=== PATIENT | male | born 1960 | race Caucasian/White ===

== ENCOUNTER 2021-08-09 12:36 | Outpatient (CLI) | payer OTHER, SELFPAY ==
--- NOTE | 2021-08-10 15:40 | WPDPFTINT ---
PFT Procedure Performed PFT Procedure Performed Spirometry with Pre/Post Bronchodilator Plethysmography (Lung Vol) Diffusing Cap (DLCO) Flow Vol Loop PFT Interpretation Lung volumes were measured with the body plethysmography method. Lung volumes are unremarkable. Spirometry shows normal expiratory flow rates and a normal FEV1 to FVC ratio 75%. Following administration of a bronchodilator, there was no significant increase in expiratory flow rates. Lung diffusion capacity is within the normal range. The flow volume loop is unremarkable. Impression: Spirometry, lung volumes, and lung diffusion capacity all within normal range.
== END 2021-08-09 12:37 | disposition home or self-care (01) ==
PROVIDERS: PCP Family Medicine; Visit Provider Allergy & Immunology
DX: R05.9 Cough, unspecified (principal)
CPT/HCPCS: 94060; 94726; 94729

== ENCOUNTER → 2021-09-06 02:46 | Outpatient (CLI) | payer OTHER, SELFPAY ==
[2021-09-06 20:41] LABS: SARS-CoV-2 RNA PCR Negative
== END ==
PROVIDERS: PCP Family Medicine; Visit Provider Family Medicine
DX: J06.9 Acute upper respiratory infection, unspecified (principal); Z20.822 Contact with and (suspected) exposure to COVID-19
CPT/HCPCS: C9803; U0003; U0005

== ENCOUNTER → 2021-12-17 14:31 | Outpatient (CLI) | payer OTHER, SELFPAY ==
--- NOTE | ~2021-12-17 | XR_ITS ---
XR hand RT min 3V DATE: 12/17/2021 14:47 INDICATION: Multiple joint pain TECHNIQUE: 4 views COMPARISON: None FINDINGS: Old healed fracture deformities of the fourth and fifth metacarpal shafts. There is prominent osteoarthritic change at the second and third and to a lesser extent first metacar pophalangeal joints. No recent fracture or dislocation, periosteal reaction or bone destruction. IMPRESSION: Polyarticular osteoarthritis Old healed fracture deformities of fourth and fifth metacarpal shafts Reviewed, dictated and finalized at location A.
== END ==
PROVIDERS: PCP Family Medicine; Visit Provider Family Medicine
DX: M25.541 Pain in joints of right hand (principal); M19.011 Primary osteoarthritis, right shoulder; Z87.81 Personal history of (healed) traumatic fracture
CPT/HCPCS: 73130

== ENCOUNTER 2022-05-03 01:43 | Day surgery (SDC) | payer OTHER, SELFPAY ==
[2022-04-23 10:56] VITALS: BMI 29.8
[2022-05-03 09:31] VITALS: BP 144/78; PULSE 56; RESP 16; TEMP 36.6; O2SAT 99
[2022-05-03] MEDS: LACTATED RINGERS 1,000 ML 150 ML IV CONT (09:42)
--- NOTE | 2022-05-03 09:54 | WPDANESEPPF ---
Anes - Initial Pre Proc Eval Procedure: Operation Date: 05/03/22 10:15 Proposed Procedures p Screening Colonoscopy - Brad Cain MD Date/Time: 05/03/22 09:54 Surgeon: Brad Cain MD Pre Op Diagnosis: neoplasm screening Patient Data Age: 61 Gender: M Height: 1.73 m Weight: 91.2 kg Last Vital Signs Temp 97.8 F 05/03/22 09:31 Pulse 56 L 05/03/22 09:31 Resp 16 05/03/22 09:31 BP 144/78 H 05/03/22 09:31 Pulse Ox 99 05/03/22 09:31 O2 Del Method Room Air 05/03/22 09:31 Allergies Allergy/AdvReac Type Severity Reaction Status Date / Time No Known Allergies Allergy Verified 05/03/22 09:29 Home Medications Medication Instructions Recorded Confirmed Type sodium,potassium,mag sulfates 17.5 See Rx Instructions PO .COMPLEX 03/27/22 05/03/22 Rx gram-3.13 gram-1.6 gram oral soln #354 mL (Suprep Bowel Prep Kit) candesartan 16 1 tablet PO DAILY 04/23/22 05/03/22 History mg-hydrochlorothiazide 12.5 mg tablet omeprazole 20 mg capsule,delayed 20 mg PO DAILY 04/23/22 05/03/22 History release indomethacin 25 mg capsule 25 mg PO BID 04/30/22 05/03/22 History prednisolone acetate 1 % eye 1 drp ophthalmic (eye) DAILY 04/30/22 05/03/22 History drops,suspension sildenafil 100 mg tablet 100 mg PO DAILY PRN Erectile 04/30/22 05/03/22 History Dysfunction Patient hx anesthesia problems: none Family hx anesthesia problems: none Results Review: All pre-operative results and documents have been reviewed as part of the pre-operative evaluation. [facility] Family History Family History (Updated 03/04/18 @ 16:04 by DOCTOR UNKNOWN) Sibling Malignant neoplasm of prostate Social History Social History Smoking status: Never smoker Alcohol intake: current Alcohol use details: socially Substance use: never Substance use type: does not use Living arrangements: with family Spiritual care concerns: No Anes - Eval Final PreProcedure Day of Procedure 05/03/22 09:54 Patient weight: obese Heart: regular rate and rhythm Lungs: clear to auscultation Airway: Mallampati scale class II Neurological: alert and oriented Last oral intake: >/= 8 hours ASA classification: II Emergent: no Anesthetic plan: proceed Anesthesia type and monitoring: general GIVS and standard monitoring Results Review: All pre-operative results and documents have been reviewed as part of the pre-operative evaluation. Informed Consent: The patient's anesthetic plan and its attendant risks and benefits were discussed with the patient/family/POA. Questions were solicited and answers provided to the satisfaction of the patient/family/POA.
--- NOTE | 2022-05-03 10:09 | P.HP_ITS ---
H&P: HPI History of Present Illness Date/Time: 05/03/22 10:09 Chief Complaint: Neoplasia screening. Narrative: This is a 61-year-old white male patient presents for screening colonoscopy. Patient's current weight appetite and bowel movements are normal. Patient denies abdominal pain. He has had no bleeding. Family history is significant his grandparent had colon cancer. Patient's last colonoscopy 08/03/2000 years ago was unremarkable. Review of Systems Review of Systems: Review of systems noncontributory. [facility] Family History Family History (Updated 03/04/18 @ 16:04 by DOCTOR UNKNOWN) Sibling Malignant neoplasm of prostate Social History Social History Smoking status: Never smoker Alcohol intake: current Alcohol use details: socially Substance use: never Substance use type: does not use Living arrangements: with family Spiritual care concerns: No Meds Home Medications and Allergies Home Medications Medication Instructions Recorded Confirmed Type sodium,potassium,mag sulfates 17.5 See Rx Instructions PO .COMPLEX 03/27/22 05/03/22 Rx gram-3.13 gram-1.6 gram oral soln #354 mL (Suprep Bowel Prep Kit) candesartan 16 1 tablet PO DAILY 04/23/22 05/03/22 History mg-hydrochlorothiazide 12.5 mg tablet omeprazole 20 mg capsule,delayed 20 mg PO DAILY 04/23/22 05/03/22 History release indomethacin 25 mg capsule 25 mg PO BID 04/30/22 05/03/22 History prednisolone acetate 1 % eye 1 drp ophthalmic (eye) DAILY 04/30/22 05/03/22 History drops,suspension sildenafil 100 mg tablet 100 mg PO DAILY PRN Erectile 04/30/22 05/03/22 History Dysfunction Allergies Allergy/AdvReac Type Severity Reaction Status Date / Time No Known Allergies Allergy Verified 05/03/22 09:29 Vital Signs Vital Signs - 24 hr 05/03/22 09:31 Temperature 97.8 F Pulse Rate 56 L Respiratory Rate 16 Blood Pressure 144/78 H Pulse Oximetry 99 Oxygen Delivery Room Air Exam Narrative: Physical exam reveals patient to be alert. Vital signs stable. HEENT exam is unremarkable. Patient is anicteric. Lungs are clear to auscultation and percussion. Heart is without murmur or extra sounds. Abdominal exam bowel sounds present soft nontender with no organomegaly. Digit al external rectal exam is normal. Assessment and Plan Assessment and plan (1) Encounter for screening colonoscopy: Code(s): Z12.11 - Encounter for screening for malignant neoplasm of colon Status: Acute Assessment and Plan: Patient presents today for screening colonoscopy. He appears to be at average risk for colon polyps. Further recommendations will be given after endoscopy.
[2022-05-03 10:38] VITALS: BP 115/66; PULSE 55; RESP 17; O2SAT 98
[2022-05-03 10:48] VITALS: BP 118/76; PULSE 51; RESP 17; O2SAT 96
[2022-05-03 10:58] VITALS: BP 124/75; PULSE 52; RESP 17; O2SAT 98
== END 2022-05-03 11:12 | disposition home or self-care (01) ==
PROVIDERS: PCP Family Medicine; Visit Provider Internal Medicine Gastroenterology
PROC: 0DJD8ZZ Inspection of Lower Intestinal Tract, Via Natural or Artificial Opening Endoscopic (ICD-10-PCS; CPT 45378; principal; 2022-05-03 10:15)
DX: Z12.11 Encounter for screening for malignant neoplasm of colon (principal); Z80.0 Family history of malignant neoplasm of digestive organs; K57.30 Diverticulosis of large intestine without perforation or abscess without bleeding; K64.8 Other hemorrhoids
CPT/HCPCS: 45378; J2704; J7120

== ENCOUNTER 2023-12-23 10:18 | Outpatient (CLI) | payer OTHER, SELFPAY ==
--- NOTE | ~2023-12-23 | XR_ITS ---
Clinical Indication: Cough PA and lateral views of the chest: Comparison: 02/28/2010 Findings: The lungs are clear, without evidence of focal consolidation or pleural effusion. Cardiome diastinal silhouette is within normal limits. Bones and soft tissues are unremarkable. Impression: Normal chest. Reviewed, dictated and finalized at [facility]. Impression: Normal chest.
== END 2023-12-23 10:19 ==
PROVIDERS: PCP Family Medicine; Visit Provider Family Medicine
DX: R05.9 Cough, unspecified (principal)
CPT/HCPCS: 71046

== ENCOUNTER 2024-01-29 13:56 | Outpatient (CLI) | payer OTHER, SELFPAY ==
--- NOTE | ~2024-01-29 | XR_ITS ---
XR hip LT min 2V Ordering provider: Matt Pineda MD History: . M25.552 - Pain in left hip . Comparison: None. FINDINGS: BONES: No acute fracture or dislocation. HIP JOINT SPACES: Normal. SACROILIAC JOINT SPACES/LUMBAR SPINE: The sacroiliac joint spaces are normal. PUBIC SYMPHYSIS: Normal. SOFT TISSUES: Normal. IMPRESSION: No acute osseous abnormality left hip. Reviewed, dictated and finalized at location A.
== END 2024-01-29 13:57 ==
LOC: MICIMG 13:56
PROVIDERS: PCP Family Medicine; Visit Provider Family Medicine
DX: M25.552 Pain in left hip (principal)
CPT/HCPCS: 73502

== ENCOUNTER 2025-01-25 13:50 | Outpatient (CLI) | payer OTHER, SELFPAY ==
--- NOTE | ~2025-01-25 | XR_ITS ---
AP view of the pelvis and AP and lateral views of the left hip Clinical history: Pain Findings: No acute fracture or dislocation is seen. Osseous alignment is anatomic. There is minimal d egenerative change of the left hip joint. Soft tissues are unremarkable. Impression: Minimal degenerative change of the left hip joint. Reviewed, dictated and finalized at location . Impression: Minimal degenerative change of the left hip joint.
== END 2025-01-25 13:51 | disposition home or self-care (01) ==
LOC: MICIMG 13:51
PROVIDERS: PCP Family Medicine; Visit Provider Family Medicine
DX: M25.552 Pain in left hip (principal)
CPT/HCPCS: 73502

== ENCOUNTER 2025-03-28 00:34 | Day surgery (SDC) | payer OTHER, SELFPAY ==
[2025-03-10 08:32] VITALS: BMI 31.7
--- OUTSIDE RECORDS SUMMARY | 2025-03-28 00:36 | XMS_ITS | Clinical Summary ---
Author Organization [facility] Address [address] [place] [id number] Care Team Providers Care Career Resource Specialist Name Role Phone Matt Pineda MD Primary Care Provider [phone] Immunizations Immunization Administration Dates Next Due PFIZER COVID-19 (ORIGINAL FO RMULATION, PURPLE CAP) mRNA, LNP-S, PF, 30 MCG/0.3 ML DOSE 11/23/2020,11/03/2020 Social History Tobacco Use Types Packs/Day Years Used Date Smoking Tobacco: Never Assessed Sex and Gender Information Value Date Recorded Sex Assigned at Not on file Legal Sex Male 5:15 PM CDT Gender Identity Not on file Sexual Orientation Not on file Plan of Treatment Health Maintenance Due Date Last Done Comments Colorectal Cancer Screening Colonoscopy (10 Years) 1961 Annual Physical 1964 Hepatitis C 1979 DTaP, Tdap and Td Vaccines ( 1 - Tdap) 1980 Pneumococcal Vaccine: 50+ Years (1 of 1 - PCV) 2011 Zoster Vaccines (1 of 2) 2011 COVID-19 Vaccine (3 - 2023-2 5 season) 2024 11/23/2020, 11/03/2020 RSV Immunization or 60+ Years (1 - 1-dose 75+ series) 2036 Meningococcal B Vaccine Aged Out No l onger eligible based on patient's age to complete this topic Meningococcal Vaccine Aged Out No wilmer john paul eligible based on patient's age to complete this topic RSV Immunizations Under 20 Months Aged Out No longer eligible b ased on patient's age to complete this topic Care Teams Career Resource Specialist Relationship Specialty Start Date End Date Matt Pineda MD [address] [place] [address] PCP - General 10/19/13
--- OUTSIDE RECORDS SUMMARY | 2025-03-28 00:36 | XMS_ITS | Continuity of Care Document ---
Author Organization [facility] Address [address] [place] [address] Phone Care Team Providers Care Polymerization Oven Tender Name Role Phone Alex PT, ASHELYT, Kelvin Unavailable Loreto vailable Procedures Procedure Date Therapeutic Activities Neuromuscular Re-Ed Therapeutic Exercise Manual Therapy Therapeutic Activities Therapeutic Exercise Neuromuscular Re-Ed Manual Therapy Therapeutic Activities Neuromuscular Re-Ed Therapeutic Exercise Manual Therapy Therapeutic Activities Neuromuscular Re-Ed Therapeutic Exercise Manual Therapy Therapeutic Activities Neuromuscular Re-Ed Therapeutic Exercise Manual Therapy Therapeutic Activities Neuromuscular Re-Ed Therapeutic Exercise Manual Therapy Therapeutic Activities Neuromuscular Re-Ed Therapeutic Exercise Manual Therapy Doc neg elder mal no plan PT Evaluation Moderate Complexity Therapeutic Activities Manual Therapy Therapeutic Exercise Neuromuscular Re-Ed Hot or Cold Pack Advance Directives Directive Yes / No Effective Date File Name No Information Encounters Encounter Description Practice Location Reason(s) For Visit Diagnoses Date Provider Providers Copied on Encounter [facility], [place], [place], [id number], tel:[phone] [facility] No Information Allyson Warren. [address] [place] [address], [address], [place], [place], [facility], . tel:[phone] Referring Provider: Omer Moon, [address], [place], [address]. tel:[phone] [facility] [address], [place], [place], [id number], [place] tel:[phone] [facility] No Information Allyson Warren. [address] [place] [address], [address], [place], [place], [facility], . tel:[phone] Referring Provider: Omer Moon, [address], [place], [address]. tel:[phone] [facility] [address], [place], [place], [id number], [place] tel:[phone] [facility] No Information Bernarda Burrell. . Referring Provider: Omer Moon, [address], [place], [address]. tel:[phone] [facility] [address], [place], [place], [id number], [place] tel:[phone] [facility] No Information [facility] [place]. . Referring Provider: Omer Moon, [address] [place], [address]. tel:[phone] [facility], [place], [place], [id number], [place] tel:[phone] [facility] No Information Allyson Warren. [address] [place] [address], [address], [place], [place], [facility], [place]. tel:[phone] Referring Provider: Omer Moon, [address], [place], [address]. tel:[phone], [id number], tel:[phone] [place] No Information Allyson Warren. [address] [place] [address], [address] [address], . tel:[phone] Referring Provider: Omer Moon, [address], [place], [address]. tel:[phone], [id number], tel:[phone] [facility] No Information Bernarda Savage . Referring Provider: Viri Garcia[address] [place], [address]. tel:[phone], [id number], tel:[phone] [facility] No Information Allyson Warren. [address] [place] [address], [address], [place], [address] [place] [address]. tel:[phone] Referring Provider: Omer Moon [address] [place], [address]. tel:[phone] Family History Family Member Type Diagnosis Age At Onset No Information Payers Payer name Insurance type Covered republican ID Daina diallo(s) [facility] Shared Services CI [id number] Social History Type Description Quantity Date Captured Comments Sex Male Smoking Status No Information Chief Complaint And Reason For Visit No Information Reason For Referral Reason For Referral No Information History Of Present Illness Encounter Date Complaint History Of Prese nt Illness No Information Functional Status Date Functional Assessmen t No Information Instructions Date Instruction Additional Infor mation No Information Assessments Type Assessment Date No Information Patient Care Teams Name Effective Dates (start - stop) Status Members No Information
--- OUTSIDE RECORDS SUMMARY | 2025-03-28 00:37 | XMS_ITS | Clinical Summary ---
Author Organization [facility] Address [address] [place] [address] Phone Care Team Providers Care Manager Diesel Name Role Phone Matt Pnieda MD Primary Care Provider [phone] Allergies No known active allergies Medications omeprazole (PriLOSEC) 20 mg capsule Take 1 capsule (20 mg total) by mouth nightly 8 Active VIAGRA 100 mg tablet Take 1 tablet (100 mg total) by mouth as needed 8 Active multivitamin capsule Take 1 capsule by mouth every morning Active krill oil 500 mg capsule Take 1 capsule by mouth every morning Active candesartan-hyd rochlorothiazid (ATACAND HCT) 16-12.5 mg per tablet 2 Active indomethacin (INDOCIN) 25 mg capsule TAKE 1 CAPSULE THREE TIMES A DAY NEEDED 270 capsule 3 4 Active amLODIPine (NORVASC) 10 mg tablet 4 Active azelastine (ASTELIN) 137 mcg (0.1 %) nasal spray USE 1 SPRAY IN EACH NOSTRIL EVERY 12 HOURS 4 Active Asmanex HFA 200 mcg/actuation inhaler [address] (PROTONIX) 40 mg EC tablet TAKE 1 TABLET BY MOUTH EVERY MORNING FOR 6 WEEKS 4 Active prednisoLONE acetate (PRED FORTE) 1 % ophthalmic suspension Administer 1 drop into both eyes daily 15 mL 11 5 Active Active Problems Problem Noted Date Diagnosed Date Deviated nasal septum 09/13/2020 Hypertrophy of both inferior nasal turbinates Recurrent sinusitis 09/13/2020 PVD (posterior vitreous detachment), left 2019 Assessment & Plan (08/04/2020 1:56 PM BOTTLE LABELER): Acute X 1 day -retina flat and attached both eyes (OU) -pt ed s/s retinal detachment (RD); RTC sissy if noted -otherwise rtc as scheduled 09/29/20 s/p DMEK/CE OD (06/19/20), s/p DMEK/CE OS () 03/14/2020 Assessment & Plan (09/09/2023 2:06 PM BOTTLE LABELER): Clear grafts OU Cont FML OU qd RTC [address] Virk, [facility] Assessment & Plan (02/19/2022 11:22 AM CDT): Clear grafts OU FML OU qd RTC 1 yr Assessment & Plan (02/20/2021 1:41 PM CDT): DMEK attached OU, VA and IOP excellent cont FML OU qd RTC 12mos Assessment & Plan (07/28/2020 11:11 AM BOTTLE LABELER): DMEK attached OU FML OU qd MRx w/ Demetrulius RTC me 6-8mos Assessment & Plan (06/27/2020 8:54 AM BOTTLE LABELER): DMEK attached except small portion of inferior border with associated MCE, centered, compact, Clear centrally, S-stamp visible. No keratitic precipitate (KP). Status post (s/p) DMEK POW1 Plan : Suture removed MRx @ 3 months Dilate next Stop Oflox today Predforte taper 6x/day x 2 weeks, then QID, TID, BID, once daily x 1 month OD. Then change to FML daily. Continue mercedes until FBS resolves Continue PF BID OS x 2 more weeks, then decrease to qday and stay at that frequency. D/w pt to RTC SISSY for worsening vision, flashes, floaters, pain. 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 Early sub epi scar without change. Continue: mercedes gtt qam OU mercedes brooks qhs OU Discussed that Rho kinase studies likely not starting here soon, but could go to [place] for DSO if interested. Discussed risks of pandemic WRT [place] vs [place]. Would recommend instead that he meet with Dr. Thomas regarding possible DMEK/CE/IOL OS for this reason as well as quicker recovery. RTC with Dr. Thomas [facility]( discussed w/ Dr. Thomas by phone- he will call patient), will also schedule follow-up here in 6 months. Assessment & Plan (10/14/2019 1:34 PM BOTTLE LABELER): Beginning to have difficulties with ADLs/driving Early sub epi scar without change Discussed S may membrane removal/Rho kinase and upcoming study-will call back in the next 2-3 months for consideration. 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 Hypertension 06/29/2013 Gastroesophageal reflux disease 02/26/2011 Common migraine with intractable migraine 2010 Obstructive sleep apnea syndrome 02/26/2011 Resolved Problems Problem Noted Date Diagnosed Date Resolved Date Combined forms of age-relate d cataract of right eye 04/13/2020 10/04/2020 Overview (04/13/2020): Added automatically from request for surgery [id number] Combined forms of age-relate d cataract of left eye 02/21/2020 03/14/2020 Overview (02/21/2020): Added automatically from request for surgery [id number] Combined forms of age-related cataract 04/25/2015 10/04/2020 Assessment & Plan (04/09/2019 11:52 AM CDT): adl being met Assessment & Plan (02/27/2018 10:12 AM CDT): BAT 20/40 right eye (OD) and 20/80 OS Encounters Date Type Department Care Team Description 03/24/2025 Documentation [facility] Medicine [address] [place] [phone] Kathy Hyatt MA 03/23/2025 Telephone [facility] [address] [place] [phone] Sharan Strong DO hip surgery 03/02/2025 8:33 AM CDT - 03/02/2025 11:59 PM CDT Hospital Encounter [facility] [address] [place] [address] Left hip pain; Primary osteoarthritis of left hip Discharge Disposition: Discharge to home or self care 03/02/2025 Orders Only [facility] [address] [place] [phone] Sharan Strong DO 03/02/2025 Orders Only [facility] [address] [place] [phone] Sharan Strong DO Primary osteoarthritis of left hip (Primary Dx) 02/24/2025 11:00 AM CDT Office Visit [facility] [address] [place] [phone] Sharan Strong DO Primary osteoarthritis of left hip (Primary Dx); Left hip pain 01/25/2025 10:55 AM CDT - 01/25/2025 11:59 PM CDT Hospital Encounter [facility] [address] [place] [address] Discharge Disposition: Discharge to home or self care from Last 3 Months Surgical History Surgery Date Site/Laterality Comments ACHILLES TENDON REPAIR 08/25/2014 - 08/24/2015 Left FRACTURE SURGERY THUMB COLONOSCOPY EYE SURGERY Bilateral DMEK CATARACT EXTRACTION Bilateral FL FLUORO GUIDED INJECTION HIP LEFT 03/02/2025 Left Medical History Medical History Date Comments Fuchs' corneal dystrophy Sleep apnea GERD (gastroesophageal reflux disease) Hypertension Family History Medical History Relation Name Comments Cataracts Father Cataracts Mother Cancer Other 1 Cancer - (Added by TW Conv) Migraines Other 2 Migraine Headac he - mother and brother (Added by TW Conv) Hypertension Other 3 Hypertension - (Added by TW Conv) Coronary artery disease Other 4 Germain nary Artery Disease - (Added by Conv) Fuchs' dystrophy Neg Hx Glaucoma Neg Hx Retinal detachment Neg Hx Relation Name Status Comments Father Mother Other 1 Other 2 Other 3 Other 4 Social History Tobacco Use Types Packs/Day Years Used Date Smoking Tobacco: Never Smokeless Tobacco: Never Tobacco Cessation:Counseling Given: Not Answered Alcohol Use Standard Drinks/Week Comments Yes 4 (1 standard drink = 0.6 oz pur e alcohol) Sex and Gender Information Value Date Recorded Sex Assigned at Not on file Legal Sex Male 9:23 AM BOTTLE LABELER Gender Identity Not on file Sexual Orientation Not on file Obstetrics History Last Filed Vital Signs Vital Sign Reading Time Taken Comments Blood Pressure 154/80 02/25/2024 8:33 AM CDT Pulse 68 02/25/2024 8:33 AM CDT Temperature 37.2 C (99 F) 02/25/2024 8:33 AM CDT Respiratory Rate 24 06/19/2020 4:25 PM CDT Oxygen Saturation 98% 02/25/2024 8:33 AM CDT Inhaled Oxygen Concentration - - Weight 100.7 kg (222 lb) 02/25/2024 8:33 AM CDT Height 175.3 cm (5' 9) 02/25/2024 8:33 AM CDT Body Mass Index 32.78 02/25/2024 8:33 AM CDT Plan of Treatment Health Maintenance Due Date Last Done Comments Colon Cancer Screening-Colonoscopy 1961 Depression Screening 1961 Hepatitis C Screening 1961 Prostate Cancer Screening-PSA 1961 DTaP/Tdap/Td Vaccine (1 - Tdap) 1972 Hepatitis B Screening 1979 Regular Well Visit/Exam 18-64 1979 Zoster Vaccine (1 of 2) 2011 Covid-19 Vaccine (3 - 2023-2 5 season) 2024 11/23/2020, 11/03/2020 Influenza Vaccine (#1) 2025 , 07/15/2014 Pneumococcal vaccine <65 Aged Out No longer eligible based on patient's age to complete this topic Medical Devices Implanted Type Area Barrel Marker Device Identifier Shelf Expiration Date Model / Serial / Lot [employer] [id number] 16.5d Tecnis Protec 6mm 13mm 1 Piece Anterior Aspheric Square Edge Uv - [id number] - [id number] Implanted:Qty : 1 on 03/13/2020 by Moses Thomas MD at [facility] Lens Left: Anterior Chamber [employer] 11/15/2023 [id number] / [id number] / 0 Cornea Implanted:Qty : 1 on 03/13/2020 by Moses Thomas MD at [facility] Other - see comments Left: Cornea [employer] 03/22/2020 [id number] / [id number] Description:135004 $300.00 470775 $1000.00 328630 $3300.00 TOTAL $4600.00 Left Cornea Posterior Layer Implanted:Qty : 1 on 06/19/2020 by Moses Thomas MD at [facility] Right: Eye [employer] 10/21/2021 [id number] / [id number] [employer] Zcb00 18.0d Tecnis Protec 6mm 13mm 1 Piece Anterior Aspheric Square Edge Uv - [id number] - [id number] Implanted:Qty : 1 on 06/19/2020 by Moses Thomas MD at [facility] Right: Eye [employer] 06/05/2023 [id number] / [id number] / Procedures Procedure Name Priority Date/Time Associated Diagnosis Comments FL FLUORO GUIDED INJECTION HIP LEFT Schedule Routine, Read Routine (OP Routine) 03/02/2025 8:55 AM CDT Primary osteoarthritis of left hip XR TRANSFER OF OUTSIDE FILMS Routine 01/25/2025 10:55 AM CDT from Last 3 Months Results * FL Fluoro Guided Injection Hip Left (03/02/2025 8:55 AM CDT) Anatomical Region Laterality Modality Hip Left Computed Radiogr aphy, Computed Radiography 03/02/2025 4:32 PM CDT Narrative 03/02/2025 4:35 PM CDT EXAM DESCRIPTION: FL FLUORO GUIDED INJECTION HIP LEFT REASON FOR STUDY: Left hip pain. COMPARISON: Left hip radiographs 01/25/2025 RADIATION DOSE: Dose: There was a malfunction of the software and no doses were reported. Fluoroscopy time 0.2 minutes with 1 image saved. TECHNIQUE/FINDINGS: Digital images acquired during fluoroscopy and stored on PACS. Needle placement was documented with fluoroscopic images. 8 mL of a mixture containing 3 mL of 0.25% bupivacaine, 1 mL of 40 mg Depo-Medrol, and 5 mL of Omnipaque 240 was injected. PROCEDURE: Procedure, risks, benefits and alternatives explained to patient who then gave written consent. The left hip was marked and a time-out was called for correct marking verification. Entry site marked using fluoroscopic guidance. The area was prepped and draped using sterile technique. Local anesthesia achieved using 1% lidocaine injection. Hypodermic needle introduced into the joint space under direct fluoroscopic visualization. Non-ionic contrast was used to confirm intra-articular position. The remaining above mixture was instilled into the joint space without difficulty. Needle removed and entry site covered with sterile bandage. No immediate complications noted. IMPRESSION: 1. Successful fluoroscopically guided steroid injection of the left hip . THIS IS AN ELECTRONICALLY VERIFIED FINAL REPORT 03/02/2025 4:35 PM - Electronically signed by Cristobal Oden M.D. LB T: Report ID: [id number] Reading Location: [id number] Procedure Note Cristobal Oden MD - 03/02/2025 EXAM DESCRIPTION: FL FLUORO GUIDED INJECTION HIP LEFT REASON FOR STUDY: Left hip pain. COMPARISON: Left hip radiographs 01/25/2025 RADIATION DOSE: Dose: There was a malfunction of the software and nodoses were reported. Fluoroscopy time 0.2 minutes with 1 image saved. TECHNIQUE/FINDINGS: Digital images acquired during fluoroscopy and storedon PACS. Needle placement was documented with fluoroscopic images. 8 mL of a mixture containing 3 mL of 0.25% bupivacaine, 1 mL of 40 mg Depo-Medrol, and 5 mL of Omnipaque 240 was injected. PROCEDURE: Procedure, risks, benefits and alternatives explained topatient who then gave written consent. The left hip was marked and a time-outwas called for correct marking verification. Entry site marked usingfluoroscopic guidance. The area was prepped and draped using sterile technique. Local anesthesia achieved using 1% lidocaine injection. Hypodermic needle introduced into the joint space under direct fluoroscopic visualization. Non-ionic contrast was used to confirm intra-articular position. Theremaining above mixture was instilled into the joint space without difficulty.Needle removed and entry site covered with sterile bandage. No immediate complications noted. IMPRESSION: 1. Successful fluoroscopically guided steroid injection of the left hip. THIS IS AN ELECTRONICALLY VERIFIED FINAL REPORT 03/02/2025 4:35 PM - Electronically signed by Cristobal VAUGHAN T: Report ID: [id number] Reading Location: [id number] us Sharan Strong DO IMG FLUOROSCOPY PROCEDURES Fin al Result * XR Outside Reference (01/25/2025 10:55 AM CDT) Narrative RAD_MICHAEL_RITO_MHE - 02/24/2025 10:52 AM CDT This order has been auto-finalized and does not contain a result. us Provider Transcribed Order IMG XR PROCEDURES Fin al Result RAD_CLARIO_MHB_MHE from Last 3 Mon[place] [phone] [facility] [address] [place] [address] [facility] CHOICE PLUS Advance Directives For more information, please contact: [phone] * Full Code (Latest Code Status on File) Date Activated Date Inactivated Comments 06/19/2020 3:40 PM 06/19/2020 8:41 PM Care Teams Manager Diesel Relationship Specialty Start Date End Date Matt Pineda MD [address] [place] [id number] PCP - General 01/01/17
--- OUTSIDE RECORDS SUMMARY | 2025-03-28 00:37 | XMS_ITS | Patient Health Record ---
Author Organization [facility] Address [address] [place], [place] [id number] Care Team Providers Care Arabic Translator Name Role Phone ADA DOSS Unavailable [phone] Ada Pineda Unavailable Unavailable Allergies No Known Allergies Reason For Referral No Information Medications Medication SIG (Take, Route, Frequency, Duration) Notes Start Date End Date Status Lisinopril 10 MG Oral Tablet ORAL lisinopril 10 MG Oral TabletOriginal Medicationlisinopril 10 MG Oral Tablet *Reorder from [employer] for eRx and Interaction Alerts* 06/18/2013 Active Plan Of Treatment No Information Insurance Providers Payer Name Payer Address Payer Phone Subscriber Number Group Number Insured Name Patient Relationship to Insured Coverage Start Date Coverage End Date [facility] [address] [address] [place] [address] [id number] U INDER GONZALEZ Self - patient is the insured Medical (General) History Medical History History ICD Code Arthritis Sleep apnea
--- OUTSIDE RECORDS SUMMARY | 2025-03-28 00:37 | XMS_ITS | Clinical Summary ---
Author Organization [facility] Address [address] [place] [address] Care Team Providers Care Dishwasher Busser Name Role Phone Matt Pineda MD Primary Care Provider [phone] Source Comments [facility],non-[facility] health Affiliates and Associated Physician Practices is amultiple site organization consisting of ambulatory clinics and hospital sitesin [place], [place], [place] and [place]. This disclosure is being madepursuant to the Care Everywhere program and may not contain all information available regarding this patient. Last updated 18.[facility] Allergies No known active allergies Medications * Be aware that medications may not be up to date on this document. Alwaysverify current medications with the patient. sulfamethoxazol e-trimethoprim (BACTRIM DS; SEPTRA DS) 800-160 MG tablet Take 1 tablet by mouth 2 times daily FOR 7 DAYS 09/07/2020 Active sildenafil (VIAGRA) 100 MG tablet 05/06/2020 Active prednisoLONE acetate (PRED FORTE) 1 % ophthalmic suspension Instill 1 drop into both eyes 2 times daily 06/19/2020 Active omeprazole (PRILOSEC) 20 MG capsule 09/04/2020 Active ofloxacin (OCUFLOX) 0.3 % ophthalmic solution 06/19/2020 Active mupirocin (BACTROBAN) 2 % ointment Apply 2 % to affected area 3 times daily 09/07/2020 Active lisinopril-hydr oCHLOROthiazide (PRINZIDE; ZESTORETIC) 20-25 MG tablet 07/24/2020 Act urvashi fluticasone propionate (FLONASE) 50 MCG/ACT nasal spray Rochert 2 (two) sprays into each nostril once daily 48 g 4 11/22/2020 Active Active Problems Problem Noted Date Diagnosed Date Recurrent sinusitis 09/13/2020 Deviated nasal septum 09/13/2020 Hypertrophy of both inferior nasal turbinates PVD (posterior vitreous detachment), left 2019 Overview (09/27/2020): Last Assessment & Plan: Acute X 1 day -retina flat and attached both eyes (OU) -pt ed s/s retinal detachment (RD); RTC sissy if noted -otherwise rtc as scheduled 09/29/20 Pseudophakia of left eye 03/14/2020 Hypertension 06/29/2013 Obstructive sleep apnea syndrome 02/26/2011 Immunizations Immunization Administration Dates Next Due INFLUENZA VACCINE 05/14/2020 Social History Tobacco Use Types Packs/Day Years Used Date Smoking Tobacco: Never Smokeless Tobacco: Never Alcohol Use Standard Drinks/Week Comments Yes 1 (1 standard drink = 0.6 oz pur e alcohol) AUDIT-C Answer Date Recorded Q1: How often do you have a drink containing alcohol? 4 or more times a week 09/13/2020 Q2: How many drinks containi ng alcohol do you have on a typical day when you are drinking? 3 or 4 Q3: How often do you have si x or more drinks on one occasion? Never 09/13/2020 Sex and Gender Information Value Date Recorded Sex Assigned at Not on file Legal Sex Male 5:25 AM CARE COORDINATION MANAGER Gender Identity Not on file Sexual Orientation Not on file Last Filed Vital Signs Vital Sign Reading Time Taken Comments Blood Pressure 149/80 09/27/2020 1:03 PM CARE COORDINATION MANAGER Pulse 58 09/27/2020 1:03 PM CARE COORDINATION MANAGER Temperature - - Respiratory Rate - - Oxygen Saturation - - Inhaled Oxygen Concentration - - Weight 96.6 kg (213 lb) 09/27/2020 1:03 PM CARE COORDINATION MANAGER Height 172.7 cm (5' 8) 09/27/2020 1:03 PM CARE COORDINATION MANAGER Body Mass Index 32.39 09/27/2020 1:03 PM CARE COORDINATION MANAGER Plan of Treatment Health Maintenance Due Date Last Done Comments COLOGUARD (AGES 45-75) - COL ON CA SCREENING 1961 COLON MONITORING 1961 COLONOSCOPY - COLON CA SCREENING 1961 CT COLONOGRAPHY - COLON CA SCREENING 1961 Colorectal Cancer Screening 1961 FIT - COLON CA SCREENING 1961 FLEX SIG - COLON CA SCREENING 1961 LIPID TESTING 1961 HIV SCREENING 1976 HEPATITIS C SCREENING 07/17/1979 DTAP/TDAP/TD VACCINES (1 - Tdap) 1980 PNEUMOCOCCAL VACCINE 50+ (1 of 1 - PCV) 2011 ZOSTER VACCINE (1 of 2) 2011 SCREENING FOR DIABETES 09/27/2020 COVID-19 VACCINE (1 - 2023-2 5 season) 2024 DEPRESSION SCREENING 08/25/2024 INFLUENZA VACCINE (#1) 2025 05/14/2020 Respiratory Syncytial Virus (RSV) Vaccine Pt: or over 60 yrs (1 - 1-dose 75+ series) 2036 HEPATITIS B VACCINE Aged Out No longe r eligible based on patient's age to complete this topic HIB VACCINE Aged Out No longer eligi ble based on patient's age to complete this topic HPV VACCINE Aged Out No longer eligi ble based on patient's age to complete this topic MENINGOCOCCAL (Group B) VACC INE SHARED DECISION-MAKING Aged Out No longer eligibl e based on patient's age to complete this topic MENINGOCOCCAL GROUPS A/C/Y/W VACCINE Aged Out No longer eligible b ased on patient's age to complete this topic Insurance [facility] [employer] Care Teams Dishwasher Busser Relationship Specialty Start Date End Date Matt Pineda MD [address] [place] [address] TOMY Allen [phone] PCP - General 09/11/20
--- OUTSIDE RECORDS SUMMARY | 2025-03-28 00:37 | XMS_ITS | Referral Summary ---
Author Organization [facility] Address [address] [place] [address] Phone Care Team Providers Care Hemodialysis Technician Name Role Phone Matt Pineda MD Primary Care Provider [phone] Encounters Date Type Department Care Team Description 03/24/2025 Documentation [facility] Orthopedics and Sports Medicine [address] [place] [address] [place] [phone] Kathy Hyatt MA 03/23/2025 Telephone [facility] [address] [facility] [address] [place] [phone] Sharan Strong DO hip surgery 03/02/2025 Orders Only [facility] [address] [facility] [address] [place] [address] Sharan Strong DO 03/02/2025 Orders Only [facility] [address] [place] [address] [address] [place] [address] Sharan Strong DO Primary osteoarthritis of left hip (Primary Dx) 03/02/2025 8:33 AM CDT - 03/02/2025 11:59 PM CDT Hospital Encounter [facility] [address] [place] [address] Left hip pain; Primary osteoarthritis of left hip Discharge Disposition: Discharge to home or self care 02/24/2025 11:00 AM CDT Office Visit [facility] Medicine [address] [facility] [address] [place] [phone] Sharan Strong DO Primary osteoarthritis of left hip (Primary Dx); Left hip pain 01/25/2025 10:55 AM CDT - 01/25/2025 11:59 PM CDT Hospital Encounter [facility] Outside Images [address] [place] [address] Discharge Disposition: Discharge to home or self care from Last 3 Months Allergies No known active allergies Medications omeprazole [...] 2019 Assessment & Plan (08/04/2020 1:56 PM LEGAL EXECUTIVE): Acute X 1 day -retina flat and attached both eyes (OU) -pt ed s/s retinal detachment (RD); RTC sissy if noted -otherwise rtc as scheduled 09/29/20 s/p DMEK/CE OD (06/19/20), s/p DMEK/CE OS () 03/14/2020 Assessment & Plan (09/09/2023 2:06 PM LEGAL EXECUTIVE): Clear grafts OU Cont FML OU qd RTC [address] Virk, [facility] Assessment & Plan (02/19/2022 11:22 AM CDT): Clear grafts OU FML OU qd RTC 1 yr Assessment & Plan (02/20/2021 1:41 PM CDT): DMEK attached OU, VA and IOP excellent cont FML OU qd RTC 12mos Assessment & Plan (07/28/2020 11:11 AM LEGAL EXECUTIVE): DMEK attached OU FML OU qd MRx w/ Dr. Mauricio RTC me 6-8mos Assessment & Plan (06/27/2020 8:54 AM LEGAL EXECUTIVE): DMEK attached except small portion of inferior [...] sub epi scar without change. Continue: mercedes manzanares qam OU mercedes brooks qhs OU Discussed that Rho kinase studies likely not starting here soon, but could go to [facility] for DSO if interested. Discussed risks of pandemic WRT [place] vs [place]. Would recommend instead that he meet with Dr. Thomas regarding possible DMEK/CE/IOL OS for this reason as well as quicker recovery. RTC with Dr. Thomas at [place]( discussed w/ Dr. Thomas by phone- he will call patient), will also schedule follow-up here in 6 months. Assessment & Plan (10/14/2019 1:34 PM LEGAL EXECUTIVE): Beginning to have difficulties with ADLs/driving Early [...] (04/13/2020): Added automatically from request for surgery [id number] Combined forms of age-relate d cataract of left eye 02/21/2020 03/14/2020 Overview (02/21/2020): Added automatically from request for surgery [id number] Combined forms of age-related cataract 04/25/2015 10/04/2020 Assessment & Plan (04/09/2019 11:52 AM CDT): adl being met Assessment & Plan (02/27/2018 10:12 AM CDT): BAT 20/40 right eye (OD) and 20/80 OS Social History Tobacco Use Types Packs/Day Years Used Date Smoking Tobacco: Never Smokeless Tobacco: Never Tobacco Cessation:Counseling Given: Not Answered Alcohol Use Standard Drinks/Week Comments Yes 4 (1 standard drink = 0.6 oz pur e alcohol) Sex and Gender Information Value Date Recorded Sex Assigned at Not on file Legal Sex Male 9:23 AM LEGAL EXECUTIVE Gender Identity Not on file Sexual Orientation [...] 02/25/2024 8:33 AM CDT Plan of Treatment Not on file Medical Devices Implanted Type Area Ep Specialist Device Identifier Shelf Expiration Date Model / Serial / Lot [employer] Zcb00 16.5d Tecnis Protec 6mm 13mm 1 Piece Anterior Aspheric Square Edge - [id number] - [id number] Implanted:Qty : 1 on 03/13/2020 by Moses Thomas MD at [facility] Lens Left: Anterior Chamber [employer] 11/15/2023 [id number] / [id number] / 0 Cornea Implanted:Qty : 1 on 03/13/2020 by Moses Thomas MD at [facility] Other - see comments Left: Cornea [employer] 03/22/2020 [id number] / [id number] / [id number] Description:332447 $300.00 148969 $1000.00 495176 $3300.00 TOTAL $4600.00 Left Cornea Posterior Layer Implanted:Qty : 1 on 06/19/2020 by Moses Thomas MD at [facility] Right: Eye [employer] 10/21/2021 [id number] / [id number] / [id number] [employer] Zcb00 18.0d Tecnis Protec 6mm 13mm 1 Piece Anterior Aspheric Square Edge Uv - [id number] - [id number] Implanted:Qty : 1 on 06/19/2020 by Moses Thomas MD at [facility] Right: Eye [employer] 06/05/2023 [id number] / [id number] / Procedures Procedure Name Priority Date/Time [...] signed by Cristobal VAUGHAN T: Report ID: [id number] Reading Location: [id number] Procedure Note Cristobal Oden MD - 03/02/2025 [...] Cristobal Oden M.D. LB T: Report ID: [id number] Reading Location: [id number] us Sharan Strong DO IMG FLUOROSCOPY PROCEDURES Fin al Result * XR Outside Reference (01/25/2025 10:55 AM CDT) Narrative JAMAL_[email or web address] - 02/24/2025 10:52 AM CDT This order has been auto-finalized and does not contain a result. us Provider Transcribed Order IMG XR PROCEDURES Fin al Result Performing Organization Address City/State/[facility] Co de Phone Number RAD_MICHAEL_MHB_MHE from Last 3 Months Insurance [facility] HMO/PPO Address: [address] [address] [facility] HEALTH PLAN [facility] CHOICE PLUS [facility] HMO/PPO Address: [facility] [address] [place] [address] Advance Directives For more information, please contact: [phone] * Full Code (Latest Code Status on File) Date Activated Date Inactivated Comments 06/19/2020 3:40 PM 06/19/2020 8:41 PM Care Teams Hemodialysis Technician Relationship Specialty Start Date End Date Matt Pineda MD [address] [place] [address] [place] [id number] PCP - General 01/01/17
--- OUTSIDE RECORDS SUMMARY | 2025-03-28 00:37 | XMS_ITS | Encounter Summary ---
Author Organization [facility] Address [address] [place] [address] Care Team Providers Care Carpet Loom Fixer Name Role Phone Matt Pineda MD Primary Care Provider [phone] Reason for Visit * Reason Onset Date Comments hip surgery 03/23/2025 Encounter Details Date Type Department Care Team (Late st Contact Info) Description 03/23/2025 Telephone [facility] Orthopedics and Sports Medicine [address] [place] [phone] Sharan Strong DO [address] [place] [id number] hip surgery Social History Tobacco Use Types Packs/Day Years Used Date Smoking Tobacco: Never Smokeless Tobacco: Never Alcohol Use Standard Drinks/Week Comments Yes 4 (1 standard drink = 0.6 oz pur e alcohol) Sex and Gender Information Value Date Recorded Sex Assigned at Not on file 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
--- NOTE | 2025-03-28 07:23 | P.PNAN_ITS ---
Anes - Initial Pre Proc Eval Procedure: Operation Date: 03/28/25 10:45 Proposed Procedures p Esophagogastroduodenoscopy - Javier Gold MD Date/Time: 03/28/25 07:23 Surgeon: Javier Gold MD Pre Op Diagnosis: Gastro-esophageal reflux disease without esophagit Patient Data Age: 64 Gender: M Height: 1.75 m Weight: 97.5 kg Allergies Allergy/AdvReac Type Severity Reaction Status Date / Time No Known Allergies Allergy Verified 03/28/25 10:02 Home Medications ?Medication ?Instructions ?Recorded ?Confirmed ?Type indomethacin 25 mg capsule 25 mg PO TID PRN headache 04/30/22 03/28/25 History testosterone therapy See Rx Instructions topical DAILY 11/04/24 03/10/25 History omeprazole 20 mg capsule,delayed 20 mg PO DAILY #90 caps 11/21/24 03/28/25 Rx release cholecalciferol (vitamin D3) 10 10 mcg PO DAILY 12/28/24 03/28/25 History mcg (400 unit) chewable tablet fluticasone propionate 50 2 spray intranasal BID #16 mL 12/28/24 03/28/25 Rx mcg/actuation nasal spray,suspension (Flonase Allergy Relief) melatonin 10 mg capsule 10 mg PO QHS 12/28/24 03/28/25 History multivitamin with minerals-folic 1 tablet PO DAILY 12/28/24 03/28/25 History acid 400 mcg-lycopene 370 mcg tablet (One-A-Day Men's 50 Plus) amlodipine 10 mg tablet 10 mg PO DAILY #90 tabs 01/18/25 03/28/25 Rx candesartan 32 1 tablet PO DAILY #90 tabs 02/28/25 03/28/25 Rx mg-hydrochlorothiazide 12.5 mg tablet ferrous sulfate 325 mg (65 mg 325 mg PO DAILY #100 tabs 02/28/25 03/10/25 Rx iron) tablet tadalafil 20 mg tablet (Cialis) 20 mg PO DAILY PRN sexual activity 02/28/25 03/10/25 Rx #20 tabs prasterone (DHEA) 25 mg tablet 25 mg PO DAILY 03/10/25 03/10/25 History (DHEA) prednisolone acetate 1 % eye 1 drp EACH EYE DAILY 03/10/25 03/28/25 History drops,suspension sildenafil 100 mg tablet 100 mg PO PRN PRN sexual activity 03/10/25 03/10/25 History cefuroxime axetil 500 mg tablet 500 mg PO Q12H 10 days #20 tabs 03/22/25 03/28/25 Rx montelukast 10 mg tablet 10 mg PO QHS #30 tabs 03/23/25 Rx Patient hx anesthesia problems: none Family hx anesthesia problems: none Results Review: All pre-operative results and documents have been reviewed as part of the pre- operative evaluation. [facility] Past Medical History Medical History Hyperglycemia, unspecified Obstructive sleep apnea (adult) (pediatric) Hemicrania continua (Unknown) Erectile dysfunction Hypertension Lung nodule Chronic GERD Surgical History Surgical History History of Achilles tendon repair left 09/2013 History of hand surgery 2002 Family History Family History Sibling Malignant neoplasm of prostate Father Acute myocardial infarction Heart disease Hypertension Grandparent Cancer Social History Social History Smoking status: Never smoker Alcohol intake: current Drinks per week: 4 Alcohol use details: socially BEERS Substance use: never Substance use type: does not use Do You Feel Safe in your Home?: Yes Lack of Transportation: No Current Housing: I Have Housing Concerned About Future Housing: No Difficulty Paying Gas/Electric Bills: No Difficulty Paying for Meds: No Currently Unemployed: YES Education: Associate Degree Difficulty w/ Childcare or Family Care: No Living arrangements: with family Occupation/Education: retired Gender identity (if verbalized by the patient): Male Sexual Orientation (if Verbalized by the Patient): Straight or Heterosexual Spiritual care concerns: No Anes - Eval Final PreProcedure Day of Procedure 03/28/25 07:23 Patient weight: obese Heart: regular rate and rhythm Lungs: clear to auscultation Airway: Mallampati scale class III Neurological: alert and oriented Last oral intake: >/= 8 hours ASA classification: III Emergent: no Anesthetic plan: proceed Anesthesia type and monitoring: general GIVS and standard monitoring Results Review: All pre-operative results and documents have been reviewed as part of the pre-operative evaluation. Informed Consent: The patient's anesthetic plan and its attendant risks and benefits were discussed with the patient/family/POA. Questions were solicited and answers provided to the satisfaction of the patient/family/POA.
[2025-03-28 10:04] VITALS: BP 153/78; PULSE 67; RESP 18; TEMP 37.1; O2SAT 98; BMI 31.8
[2025-03-28] MEDS: LACTATED RINGERS 1,000 ML 150 ML IV CONT (10:15)
[2025-03-28] MEDS: SIMETHICONE ORAL SUSPENSION 20 MG/0.3 ML 30 ML BOTTLE 1.8 ML PO (10:16)
--- NOTE | 2025-03-28 11:17 | PM.IMHP ---
H&P: HPI History of Present Illness Date/Time: 03/28/25 11:17 Chief Complaint: iron deficiency anemia Narrative: patient found to be iron deficient on routine exam. He had a colonoscopy 3 years ago which was normal. However, he takes daily ibuprofen the management of headaches. He is referred for EGD. Review of Systems Review of Systems: All systems reviewed & are unremarkable except as noted in HPI and below PMFSH Past Medical History Medical History Hyperglycemia, unspecified Obstructive sleep apnea (adult) (pediatric) Hemicrania continua (Unknown) Erectile dysfunction Hypertension Lung nodule Chronic GERD Surgical History Surgical History History of Achilles tendon repair left 09/2013 History of hand surgery 2002 Family History Family History Sibling Malignant neoplasm of prostate Father Acute myocardial infarction Heart disease Hypertension Grandparent Cancer Social History Social History Smoking status: Never smoker Alcohol intake: current Drinks per week: 4 Alcohol use details: socially BEERS Substance use: never Substance use type: does not use Do You Feel Safe in your Home?: Yes Lack of Transportation: No Current Housing: I Have Housing Concerned About Future Housing: No Difficulty Paying Gas/Electric Bills: No Difficulty Paying for Meds: No Currently Unemployed: YES Education: Associate Degree Difficulty w/ Childcare or Family Care: No Living arrangements: with family Occupation/Education: retired Gender identity (if verbalized by the patient): Male Sexual Orientation (if Verbalized by the Patient): Straight or Heterosexual Spiritual care concerns: No Meds Home Medications and Allergies Home Medications ?Medication ?Instructions ?Recorded ?Confirmed ?Type indomethacin 25 mg capsule 25 mg PO TID PRN headache 04/30/22 03/28/25 History testosterone therapy See Rx Instructions topical DAILY 11/04/24 03/10/25 History omeprazole 20 mg capsule,delayed 20 mg PO DAILY #90 caps 11/21/24 03/28/25 Rx release cholecalciferol (vitamin D3) 10 10 mcg PO DAILY 12/28/24 03/28/25 History mcg (400 unit) chewable tablet fluticasone propionate 50 2 spray intranasal BID #16 mL 12/28/24 03/28/25 Rx mcg/actuation nasal spray,suspension (Flonase Allergy Relief) melatonin 10 mg capsule 10 mg PO QHS 12/28/24 03/28/25 History multivitamin with minerals-folic 1 tablet PO DAILY 12/28/24 03/28/25 History acid 400 mcg-lycopene 370 mcg tablet (One-A-Day Men's 50 Plus) amlodipine 10 mg tablet 10 mg PO DAILY #90 tabs 01/18/25 03/28/25 Rx candesartan 32 1 tablet PO DAILY #90 tabs 02/28/25 03/28/25 Rx mg-hydrochlorothiazide 12.5 mg tablet ferrous sulfate 325 mg (65 mg 325 mg PO DAILY #100 tabs 02/28/25 03/10/25 Rx iron) tablet tadalafil 20 mg tablet (Cialis) 20 mg PO DAILY PRN sexual activity 02/28/25 03/10/25 Rx #20 tabs prasterone (DHEA) 25 mg tablet 25 mg PO DAILY 03/10/25 03/10/25 History (DHEA) prednisolone acetate 1 % eye 1 drp EACH EYE DAILY 03/10/25 03/28/25 History drops,suspension sildenafil 100 mg tablet 100 mg PO PRN PRN sexual activity 03/10/25 03/10/25 History cefuroxime axetil 500 mg tablet 500 mg PO Q12H 10 days #20 tabs 03/22/25 03/28/25 Rx montelukast 10 mg tablet 10 mg PO QHS #30 tabs 03/23/25 Rx Allergies Allergy/AdvReac Type Severity Reaction Status Date / Time No Known Allergies Allergy Verified 03/28/25 10:02 Vital Signs Vital Signs - 24 hr 03/28/25 10:04 Temperature 98.7 F Pulse Rate 67 Respiratory Rate 18 Blood Pressure 153/78 H Pulse Oximetry 98 Oxygen Delivery Room Air Exam Const: General: cooperative and healthy appearing Resp: Effort & Inspection: normal respiratory effort and able to speak in complete sentences Auscultation: clear to auscultation bilaterally Cardio: Rate: regular rate Rhythm: regular rhythm GI: Inspection: normal to inspection GI Palp: No No hepatosplenomegaly present Auscultation: normal bowel sounds Rectal Exam: deferred Skin: General skin exam: normal color Psych: Appearance: grossly normal Mental Status: mental status grossly normal Assessment and Plan Assessment and plan (1) Iron deficiency anemia: Code(s): D50.9 - Iron deficiency anemia, unspecified Status: Acute Assessment and Plan: The patient is deemed a good candidate for the procedure. Consent signed. Will proceed.
--- NOTE | 2025-03-28 11:31 | S_PTH ---
PATIENT: Gregg Huang LOC: [facility] #:[id number] AGE/SX: 64/M ROOM: RE03/28/[address]: Javier Gold MD : 1960 BED: DIS: 03/28/2025 SPEC #: [id number] RECD: 03/28/25 12:01 STATUS: GILBERT REClaudia #: [id number] JAIDEN: 03/28/25 11:[address]: Javier Gold DEPT: [facility] RECD BY: Olivia Jewell ENTERED: 03/28/25 12:01 SP TYPE: Surgical OTHR DR: Matt Pineda MD Tissues: A - Gastric Biopsy B - Gastric Biopsy Procedures: Hematoxylin and Eosin Stain Gross and Microscopic Level 4
[2025-03-28 11:35] VITALS: BP 118/68; PULSE 61; RESP 22; O2SAT 95
[2025-03-28 11:45] VITALS: BP 118/69; PULSE 65; RESP 21; O2SAT 96
[2025-03-28 11:55] VITALS: BP 128/83; PULSE 60; RESP 17; O2SAT 95
== END 2025-03-28 12:01 | disposition home or self-care (01) ==
PROVIDERS: PCP Family Medicine; Referring Provider Family Medicine; Visit Provider Internal Medicine Gastroenterology
PROC: 0DJ08ZZ Inspection of Upper Intestinal Tract, Via Natural or Artificial Opening Endoscopic (ICD-10-PCS; CPT 43239; principal; 2025-03-28 10:45)
DX: D50.9 Iron deficiency anemia, unspecified (principal); K21.9 Gastro-esophageal reflux disease without esophagitis; K29.30 Chronic superficial gastritis without bleeding; I10 Essential (primary) hypertension; R73.9 Hyperglycemia, unspecified; G47.33 Obstructive sleep apnea (adult) (pediatric); N52.9 Male erectile dysfunction, unspecified; G44.51 Hemicrania continua; E66.9 Obesity, unspecified; Z68.31 Body mass index [BMI] 31.0-31.9, adult; Z79.1 Long term (current) use of non-steroidal anti-inflammatories (NSAID); Z98.890 Other specified postprocedural states; Z80.42 Family history of malignant neoplasm of prostate; Z82.49 Family history of ischemic heart disease and other diseases of the circulatory system
CPT/HCPCS: 43239; 88305; J2003; J2704; J7120

== ENCOUNTER 2025-05-05 05:25 | Outpatient (CLI) | payer OTHER, SELFPAY ==
--- OUTSIDE RECORDS SUMMARY | 2025-04-28 10:36 | XMS_ITS | Clinical Summary ---
Author Organization [facility] Address [address] [place] [address] Care Team Providers Care Certified Travel Counselor Name Role Phone Matt Pineda MD Primary Care Provider [phone] Source Comments [facility],non-[facility] Affiliates and Associated Physician Practices is amultiple site organization consisting of ambulatory clinics and hospital sitesin [place], [place], [place] and [place]. This disclosure is being madepursuant to the Care Everywhere program and may not contain all information available regarding this patient. 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 Gender Identity Not on file Sexual Orientation Not on file Last Filed Vital Signs Vital Sign Reading Time Taken Comments Blood Pressure 149/80 09/27/2020 1:03 PM WOOD TURNER Pulse 58 09/27/2020 1:03 PM WOOD TURNER Temperature - - Respiratory Rate - - Oxygen Saturation - - Inhaled Oxygen Concentration - - Weight 96.6 kg (213 lb) 09/27/2020 1:03 PM WOOD TURNER Height 172.7 cm (5' 8) 09/27/2020 1:03 PM WOOD TURNER Body Mass Index 32.39 09/27/2020 1:03 PM WOOD TURNER Plan of Treatment Health Maintenance Due Date [...] of 2) 2011 SCREENING FOR DIABETES 09/27/2020 DEPRESSION SCREENING 08/25/2024 COVID-19 VACCINE (1 - 2023-2 5 season) 2025 INFLUENZA VACCINE (#1) 2025 05/14/2020 Respiratory Syncytial [...] patient's age to complete this topic Insurance [facility] [address] [place] [address] [employer]IG[employer] IRA [facility] SELF PAY NO INSURANCE Member Subscriber Plan / Payer (Ef fective for All Dates) Name:Inder Gonzalez Member ID:Not on file Relation to Subscriber:Not on file Name:INDER GONZALEZ Subscriber ID:Not on file (Home) Address: [place] [address] Payer ID:Not on file Group ID:Not on file Type:Self Pay Address: [place], [place] Care Teams Certified Travel Counselor Relationship Specialty Start Date End Date Matt Pineda MD [address] [place] [address] TOMY Allen [address] PCP - General 09/11/20
--- OUTSIDE RECORDS SUMMARY | 2025-04-28 10:36 | XMS_ITS | Patient Health Record ---
Author Organization [facility] Address [address] [place], [place] [id number] Care Team Providers Care Poker Manager Name Role Phone ADA DOSS Unavailable [phone] Ada Pineda Unavailable Unavailable Allergies No Known Allergies Reason For Referral No Information Medications Medication SIG (Take, Route, Frequency, Duration) Notes Start Date End Date Status Lisinopril 10 MG Oral Tablet ORAL lisinopril 10 MG Oral TabletOriginal Medicationlisinopril 10 MG Oral Tablet *Reorder from [employer] for eRx and Interaction Alerts* 06/18/2013 Active Plan Of Treatment No Information Insurance Providers Payer Name Payer Address Payer Phone Subscriber Number Group Number Insured Name Patient Relationship to Insured Coverage Start Date Coverage End Date [facility] [address] [address] [place] [address] [id number] U INDER GONZALEZ Self - patient is the insured Medical (General) History Medical History History ICD Code Arthritis Sleep apnea
--- OUTSIDE RECORDS SUMMARY | 2025-04-28 10:36 | XMS_ITS | Clinical Summary ---
Author Organization [facility] Address [address] [place] [address] Phone Care Team Providers Care Catering Server Name Role Phone Matt Pineda MD Primary Care Provider [phone] Allergies No known active allergies Medications omeprazole (PriLOSEC) 20 mg capsule Take 1 capsule (20 mg total) by mouth nightly 02/17/20 18 Active VIAGRA 100 mg tablet Take 1 tablet (100 mg total) by mouth as needed 11/22/19 18 Active multivitamin capsule Take 1 capsule by mouth every morning Active candesartan-hy drochlorothiaz id (ATACAND HCT) 16-12.5 mg per tablet 12/03/19 22 Active indomethacin (INDOCIN) 25 mg capsule TAKE 1 CAPSULE THREE TIMES A DAY NEEDED 270 capsule 3 02/04/20 24 Active amLODIPine (NORVASC) 10 mg tablet 07/01/20 24 Active prednisoLONE acetate (PRED FORTE) 1 % ophthalmic suspension Administer 1 drop into both eyes daily 15 mL 11 09/17/19 25 Active cefuroxime (CEFTIN) 500 mg tablet Take 1 tablet (500 mg total) by mouth every 12 (twelve) hours for 10 days 04/18/20 25 Active montelukast (SINGULAIR) 10 mg tablet Take 1 tablet (10 mg total) by mouth nightly at bedtime 03/23/20 25 Active ferrous fumarate 325 mg (106 mg iron) tablet Take 1 tablet (325 mg total) by mouth daily with breakfast Active CHOLECALCIFERO L, VITAMIN D3, ORAL Take by mouth Active celecoxib (CeleBREX) 200 mg capsule Take 1 capsule (200 mg total) by mouth 2 (two) times a day 60 capsule 04/19/20 25 025 Active krill oil 500 mg capsule Take 1 capsule by mouth every morning 025 Discontinued azelastine (ASTELIN) 137 mcg (0.1 %) nasal spray USE 1 SPRAY IN EACH NOSTRIL EVERY 12 HOURS 08/06/20 24 025 Discontinued Asmanex HFA 200 mcg/actuation inhaler 06/24/[address] (PROTONIX) 40 mg EC tablet TAKE 1 TABLET BY MOUTH EVERY MORNING FOR 6 WEEKS 07/15/20 025 Discontinued Active Problems Problem Noted Date Diagnosed Date Primary osteoarthritis of left hip 04/01/2025 Primary osteoarthritis of left knee 03/31/2025 Deviated nasal septum 09/13/2020 Hypertrophy of both inferior nasal turbinates Recurrent sinusitis 09/13/2020 PVD (posterior vitreous detachment), left 2019 Assessment & Plan (08/04/2020 1:56 PM CLAY ARTISAN): Acute X 1 day -retina flat and attached both eyes (OU) -pt ed s/s retinal detachment (RD); RTC sissy if noted -otherwise rtc as scheduled 09/29/20 s/p DMEK/CE OD (06/19/20), s/p DMEK/CE OS () 03/14/2020 Assessment & Plan (09/09/2023 2:06 PM CLAY ARTISAN): Clear grafts OU Cont FML OU qd RTC [address] Virk, [facility] Assessment & Plan (02/19/2022 11:22 AM CDT): Clear grafts OU FML OU qd RTC 1 yr Assessment & Plan (02/20/2021 1:41 PM CDT): DMEK attached OU, VA and IOP excellent cont FML OU qd RTC 12mos Assessment & Plan (07/28/2020 11:11 AM CLAY ARTISAN): DMEK attached OU FML OU qd MRx w/ Dr. Levineetrulius RTC me 6-8mos Assessment & Plan (06/27/2020 8:54 AM CLAY ARTISAN): DMEK attached except small portion of inferior [...] starting here soon, but could go to [place] for DSO if interested. Discussed risks of pandemic WRT [place] vs [place]. Would recommend instead that he meet with Dr. Thomas regarding possible DMEK/CE/IOL OS for this reason as well as quicker recovery. RTC with Dr. Thomas at [place]( discussed w/ Dr. Thomas by phone- he will call patient), will also schedule follow-up here in 6 months. Assessment & Plan (10/14/2019 1:34 PM CLAY ARTISAN): Beginning to have difficulties with ADLs/driving Early [...] (04/13/2020): Added automatically from request for surgery [id number] Combined forms of age-relate d cataract of left eye 02/21/2020 03/14/2020 Overview (02/21/2020): Added automatically from request for surgery [id number] Combined forms of age-related cataract 04/25/2015 10/04/2020 Assessment & Plan (04/09/2019 11:52 AM CDT): adl being met Assessment & Plan (02/27/2018 10:12 AM CDT): BAT 20/40 right eye (OD) and 20/80 OS Encounters Date Type Department Care Team Description 04/19/2025 9:30 AM CDT Office Visit [facility] General Neurology [address] 6[address] [place] [address] Caren Oliva MD PhD Hemicrania continua (Primary Dx); Obstructive sleep apnea syndrome; Anemia, unspecified type 04/19/2025 Telephone [facility] Neuro Sleep [address] [place] [address] Camryn Umana RN DME order 04/19/2025 Telephone [facility] General Neurology [address] [place] [address] MartinAllyne 04/04/2025 Orders Only [facility] Orthopedics and Sports Medicine [address] [place] [address] [address] [place] [address] Sharan Strong DO Primary osteoarthritis of left hip (Primary Dx) 03/24/2025 Documentation [facility] Orthopedics and Sports Medicine [address] [place] [address] [address] [place] [address] Kathy Hyatt MA 03/23/2025 Telephone [facility] Orthopedics and Sports Medicine [address] [place] [address] [address] [place] [address] Sharan Strong DO hip surgery 03/02/2025 8:33 AM CDT - 03/02/2025 11:59 PM CDT Hospital Encounter [facility] [address] [place] [address] Left hip pain; Primary osteoarthritis of left hip Discharge Disposition: Discharge to home or self care 03/02/2025 Orders Only [facility] Orthopedics and Sports Medicine [address] [place] [address] [address] [place] [address] Sharan Strong DO 03/02/2025 Orders Only [facility] Orthopedics and Sports Medicine [address] [place] [address] [address] [place] [address] Sharan Strong DO Primary osteoarthritis of left hip (Primary Dx) 02/24/2025 11:00 AM CDT Office Visit [facility] Orthopedics and Sports Medicine [address] [place] [address] [address] [place] [address] Sharan Strong DO Primary osteoarthritis of left hip (Primary Dx); Left hip pain from Last 3 Months Surgical History Surgery [...] Cancer Other 1 Cancer - (Added by Conv) Migraines Other 2 Migraine Headac he - mother and brother (Added by Conv) Hypertension Other 3 Hypertension - (Added by Conv) Coronary artery disease Other 4 Germain [...] on file Legal Sex Male 9:23 AM CLAY ARTISAN Gender Identity Not on file Sexual Orientation Not on file Obstetrics History Last Filed Vital Signs Vital Sign Reading Time Taken Comments Blood Pressure 158/79 04/19/2025 9:39 AM CDT Pulse 69 04/19/2025 9:39 AM CDT Temperature 36.9 C (98.5 F) 04/19/2025 9:39 AM CDT Respiratory Rate 24 06/19/2020 4:25 PM CDT Oxygen Saturation 97% 04/19/2025 9:39 AM CDT Inhaled Oxygen Concentration - - Weight 97.3 kg (214 lb 8 oz) 04/19/2025 9:39 AM CDT Height 177.8 cm (5' 10) 04/19/2025 9:39 AM CDT Body Mass Index 30.78 04/19/2025 9:39 AM CDT Plan of Treatment Upcoming Encounters Date Type Department Care Team (Latest Contact Info) Description 07/25/2025 7:30 AM CLAY ARTISAN Hospital Encounter [facility] OR [address] [place] [address] Sharan Strong DO [address] [place] [address] [address] 07/25/2025 7:30 AM CLAY ARTISAN - 07/25/2025 10:00 AM CLAY ARTISAN Surgery [facility] OR [address] [place] [address] Sharan Strong, [address] [place] [address] ANTERIOR APPROACH LEFT TOTAL HIP ARTHROPLASTY Scheduled Procedures Name Priority Associated Diagnoses Date/Ti me ARTHROPLASTY TOTAL HIP - ANTERIOR APPROACH Primary osteoarthritis of left hip 07/25/2025 7:30 AM CLAY ARTISAN Health Maintenance Due Date Last Done Comments Colon Cancer Screening-Colonoscopy 1961 Depression Screening 1961 Hepatitis C Screening 1961 Prostate Cancer Screening-PSA 1961 Hepatitis B Screening 1979 Regular Well Visit/Exam 18-64 1979 Zoster Vaccine (1 of 2) 2011 Covid-19 Vaccine (3 - 2024-2 6 season) 2025 11/23/2020, 11/03/2020 Influenza Vaccine (#1) 2025 , 07/15/2014 DTaP/Tdap/Td Vaccine (2 - Td or Tdap) 01/11/2035 01/11/2025 Pneumococcal vaccine <65 Aged Out No longer eligible based on patient's age to complete this topic Medical Devices Implanted Type Area Real Estate Analyst Device Identifier Shelf Expiration Date Model / Serial / Lot Mikayla [employer] Zcb00 16.5d Tecnis Protec 6mm 13mm 1 Piece Anterior Aspheric Square Edge Uv - [id number] - [id number] Implanted:Qty : 1 on 03/13/2020 by Moses Thomas MD at [facility] Lens Left: Anterior Chamber [place] [employer] 11/15/2023 [id number] / [id number] / 0 Cornea Implanted:Qty : 1 on 03/13/2020 by [place] Thomas MD at [facility] Other - see comments Left: Cornea [employer] 03/22/2020 [id number] / [id number] / [id number] Description:517563 $300.00 730093 $1000.00 399599 $3300.00 TOTAL $4600.00 Left Cornea Posterior Layer Implanted:Qty : 1 on 06/19/2020 by [place] Thomas MD at [facility] Right: Eye [employer] 10/21/2021 [id number] / [id number] / [id number] Mik[employer]la [employer] Zcb00 18.0d Tecnis Protec 6mm 13mm 1 Piece Anterior Aspheric Square Edge - [id number] - [id number] Implanted:Qty : 1 on 06/19/2020 by [place] Thomas MD at [facility] Right: Eye [place] [employer] 06/05/2023 [id number] / [id number] / Procedures Procedure Name Priority Date/Time Associated Diagnosis Comments FL FLUORO GUIDED INJECTION HIP LEFT Schedule Routine, Read Routine (OP Routine) 03/02/2025 8:55 AM CDT Primary osteoarthritis of left hip from Last 3 Months Results * FL [...] signed by Cristobal VAUGHAN T: Report ID: [id number] Reading Location: [id number] Procedure Note Cristobal Oden MD - 03/02/2025 [...] Cristobal Oden M.D. LB T: Report ID: [id number] Reading Location: [id number] Blakelyn Tae DO IMG FLUOROSCOPY PROCEDURES Fin al Result from Last 3 [place] [id number] [employer] [facility] [address] [place] [id number] [facility] [place] [address] [facility] CHOICE PLUS Advance Directives For more information, please contact: [phone] * Full Code (Latest Code Status on File) Date Activated Date Inactivated Comments 06/19/2020 3:40 PM 06/19/2020 8:41 PM Care Teams Catering Server Relationship Specialty Start Date End Date Matt Pineda MD [address] [place] [address] PCP - General 01/01/17
--- OUTSIDE RECORDS SUMMARY | 2025-04-28 10:36 | XMS_ITS | Clinical Summary ---
Author Organization [facility] Address [address] [place] [address] Care Team Providers Care Sole Rougher Name Role Phone Matt Pineda MD Primary Care Provider [phone] Immunizations Immunization Administration Dates Next Due PFIZER [...] of 2) 2011 COVID-19 Vaccine (3 - 2024-2 6 season) 2025 11/23/2020, 11/03/2020 RSV Immunization or 60+ Years [...] age to complete this topic Care Teams Sole Rougher Relationship Specialty Start Date End Date Matt Pineda MD [address] [place] [address] PCP - General 10/19/13
--- NOTE | 2025-05-05 07:14 | SUR.OPER ---
Patient brought to GI Lab. Instructions for patient undergoing Capsule Endoscopy reviewed with patient. Consent form signed. Sensor array applied to patient's abdomen and connected to recorded. Patient swallowed capsule with 2 cups of water infused with Simethicone. Patient instructed they may have clear liquids at 0830 this AM and eat or drink at 1030 this AM. Patient instructed to return to GI Lab at 1500 this afternoon for removal of recording device and to call [phone] or to return to the hospital if any nausea and vomiting or abdominal pain is experienced.
--- NOTE | 2025-05-05 14:28 | SUR.OPER ---
Patient returned to the GI Lab at 1429 for recorder box removal. Patient voiced no complaints. States they have understanding of instructions. Patient left ambulatory.
== END 2025-05-05 05:26 | disposition home or self-care (01) ==
PROVIDERS: PCP Family Medicine; Visit Provider Internal Medicine Gastroenterology
PROC: 0DJ07ZZ Inspection of Upper Intestinal Tract, Via Natural or Artificial Opening (ICD-10-PCS; CPT 91110; principal; 2025-05-05 07:00)
DX: Z01.818 Encounter for other preprocedural examination (principal)
CPT/HCPCS: 91110

== ENCOUNTER 2025-06-23 13:16 | Outpatient (CLI) | payer OTHER, SELFPAY ==
--- NOTE | ~2025-06-23 | CT_ITS ---
CT diagnostic chest wo con HISTORY:R05.3 - Chronic cough COMPARISON: None. TECHNIQUE: Axial images of the chest were obtained without infusion of intravenous contrast. Dose optimization technique was utilized. FINDINGS: The examination demonstrates no acute infiltrate. No focal consolidation. There is a 5.7 mm pulmonary nodule within the right lower lobe measured on axial image 69. There is a 6.5 mm pulmonary nodule in the posterior right lower lobe measured on axial image 71. There is a 5.9 mm pulmonary nodule within the peripheral right lower lobe measured on axial image 83. 2 to 3 mm pulmonary nodule is noted at the right lung apex measured on axial image 23. Cardiac size and mediastinal configuration are normal in appearance. No hilar or mediastinal lymphadenopathy is seen. The thoracic aorta is normal in caliber. Osseous structures are intact. IMPRESSION: There are several pulmonary nodules within the right lower lobe measuring up to 6.5 mm. Short-term follow-up low dose CT in 6 months is recommended. All CT scans at this facility are performed using low dose modulation techniques as appropriate to perform exam including the following: automated exposure control; use of iterative reconstruction technique; adjustment of the mA and/or kV according to patient size (this includes techniques or standardized protocols for targeted exams where dose is matched to indication/reason for exam). Reviewed, dictated and finalized at location S. IMPRESSION: There are several pulmonary nodules within the right lower lobe measuring up to 6.5 mm. Short-term follow-up low dose CT in 6 months is recommended. All CT scans at this facility are performed using low dose modulation techniqu es as appropriate to perform exam including the following: automated exposure c ontrol; use of iterative reconstruction technique; adjustment of the mA and/or kV according to patient size (this includes techniques or standardized protocol s for targeted exams where dose is matched to indication/reason for exam).
--- OUTSIDE RECORDS SUMMARY | 2025-06-23 14:00 | XMS_ITS | Clinical Summary ---
Author Organization [facility] Address [address] [place] [address] Phone Care Team Providers Care Plugman Name Role Phone Matt Pineda MD Primary Care Provider [phone] Allergies No known active allergies Medications omeprazole (PriLOSEC) 20 mg capsule Take 1 capsule (20 mg total) by mouth nightly 8 Active VIAGRA 100 mg tablet Take 1 tablet (100 mg total) by mouth as needed 8 Active multivitamin capsule Take 1 capsule by mouth every morning Active candesartan-hyd rochlorothiazid (ATACAND HCT) 16-12.5 mg per tablet 2 Active amLODIPine (NORVASC) 10 mg tablet 4 Active prednisoLONE acetate (PRED FORTE) 1 % ophthalmic suspension Administer 1 drop into both eyes daily 15 mL 11 5 Active cefuroxime (CEFTIN) 500 mg tablet Take 1 tablet (500 mg total) by mouth every 12 (twelve) hours for 10 days 5 Active montelukast (SINGULAIR) 10 mg tablet Take 1 tablet (10 mg total) by mouth nightly at bedtime 5 Active ferrous fumarate 325 mg (106 mg iron) tablet Take 1 tablet (325 mg total) by mouth daily with breakfast Active CHOLECALCIFEROL , VITAMIN D3, ORAL Take by mouth Active celecoxib (CeleBREX) 200 mg capsule Take 1 capsule (200 mg total) by mouth 2 (two) times a day 60 capsule 3 5 Active Active Problems Problem Noted Date Diagnosed Date Primary osteoarthritis of left hip 04/01/2025 Primary osteoarthritis of left knee 03/31/2025 Deviated nasal septum 09/13/2020 Hypertrophy of both inferior nasal turbinates Recurrent sinusitis 09/13/2020 PVD (posterior vitreous detachment), left 2019 Assessment & Plan (08/04/2020 1:56 PM FAN BLADE TRUER): Acute X 1 day -retina flat and attached both eyes (OU) -pt ed s/s retinal detachment (RD); RTC sissy if noted -otherwise rtc as scheduled 09/29/20 s/p DMEK/CE OD (06/19/20), s/p DMEK/CE OS () 03/14/2020 Assessment & Plan (09/09/2023 2:06 PM FAN BLADE TRUER): Clear grafts OU Cont FML OU qd RTC [address] Virk, [facility] Assessment & Plan (02/19/2022 11:22 AM CDT): Clear grafts OU FML OU qd RTC 1 yr Assessment & Plan (02/20/2021 1:41 PM CDT): DMEK attached OU, VA and IOP excellent cont FML OU qd RTC 12mos Assessment & Plan (07/28/2020 11:11 AM FAN BLADE TRUER): DMEK attached OU FML OU qd MRx w/ Dr. Mauricio RTC me 6-8mos Assessment & Plan (06/27/2020 8:54 AM FAN BLADE TRUER): DMEK attached except small portion of inferior [...] starting here soon, but could go to [place] for DSO if interested. Discussed risks of pandemic WRT [place] vs [place]. Would recommend instead that he meet with Dr. Thomas regarding possible DMEK/CE/IOL OS for this reason as well as quicker recovery. RTC with Dr. Thomas at [place]( discussed w/ Dr. Thomas by phone- he will call patient), will also schedule follow-up here in 6 months. Assessment & Plan (10/14/2019 1:34 PM FAN BLADE TRUER): Beginning to have difficulties with ADLs/driving Early [...] (04/13/2020): Added automatically from request for surgery [id number] Combined forms of age-relate d cataract of left eye 02/21/2020 03/14/2020 Overview (02/21/2020): Added automatically from request for surgery [id number] Combined forms of age-related cataract 04/25/2015 10/04/2020 Assessment & Plan (04/09/2019 11:52 AM CDT): adl being met Assessment & Plan (02/27/2018 10:12 AM CDT): BAT 20/40 right eye (OD) and 20/80 OS Encounters Date Type Department Care Team Description 05/10/2025 Telephone [facility] General Neurology [address] [place] [phone] Ally Salazar 05/02/2025 Orders Only [facility] SLEEP Scanning, Provider 04/19/2025 9:30 AM CDT Office Visit [facility] General Neurology [address] [place] [phone] Caren Oliva MD PhD Hemicrania continua (Primary Dx); Obstructive sleep apnea syndrome; Anemia, unspecified type 04/19/2025 Telephone [facility] Neuro Sleep [address] [place] [phone] Camryn Umana RN DME order 04/19/2025 Telephone [facility] General Neurology [address] [place] [phone] Ally Salazar 04/04/2025 Orders Only [facility] Group Orthopedics and Sports Medicine [address] [place] [address] [place] [address] Sharan Strong DO Primary osteoarthritis of left hip (Primary Dx) 03/24/2025 Documentation [facility] Orthopedics and Sports Medicine [address] [place] [address] Kathy Hyatt MA 03/23/2025 Telephone [facility] Orthopedics and Sports Medicine [facility] [facility] [address] [place] [address] Sharan Strong, hip surgery from Last 3 Months Surgical History Surgery [...] on file Legal Sex Male 9:23 AM FAN BLADE TRUER Gender Identity Not on file Sexual Orientation [...] Care Team (Latest Contact Info) Description 07/25/2025 9:45 AM FAN BLADE TRUER Hospital Encounter [facility] OR [address] [place] [address] Sharan Strong DO [address] [place] [address] DR MAR[address] [place] [address] 07/25/2025 9:45 AM FAN BLADE TRUER - 07/25/2025 12:00 PM FAN BLADE TRUER Surgery [facility] [place] [address] [place] [address] Sharan Strong DO [address] [place] [address] DR MARIA [address] [place] [address] ANTERIOR APPROACH LEFT TOTAL HIP ARTHROPLASTY Scheduled Procedures Name Priority Associated Diagnoses Date/Ti me ARTHROPLASTY TOTAL HIP - ANTERIOR APPROACH Primary osteoarthritis of left hip 07/25/2025 9:45 AM FAN BLADE TRUER Health Maintenance Due Date Last Done Comments Colon Cancer Screening-Colonoscopy 1961 Depression Screening 1961 Hepatitis C Screening 1961 Prostate Cancer Screening-PSA 1961 Hepatitis B Screening 1979 Regular Well Visit/Exam 18-64 1979 Zoster Vaccine (1 of 2) 2011 Covid-19 Vaccine (3 - 2024-2 6 season) 2025 11/23/2020, 11/03/2020 Influenza Vaccine (#1) 2025 0, 07/15/2014 DTaP/Tdap/Td Vaccine (2 - Td or Tdap) 01/11/2035 01/11/2025 Pneumococcal vaccine <65 Aged Out No longer eligible based on patient's age to complete this topic Medical Devices Implanted Type Area Medical Apparatus Model Maker Device Identifier Shelf Expiration Date Model / Serial / Lot [employer] Zcb00 16.5d Tecnis Protec 6mm 13mm 1 Piece Anterior Aspheric Square Edge - [id number] - [id number] Implanted:Qty : 1 on 03/13/2020 by [place] Thomas MD at [facility] Lens Left: Anterior Chamber [employer] 11/15/2023 [id number] / [id number] / 0 Cornea Implanted:Qty : 1 on 03/13/2020 by Moses Thomas MD at [facility] Other - see comments Left: Cornea [employer] 03/22/2020 V0121 / [id number] / [id number] Description:[id number] $300.00 858448 $1000.00 145659 $3300.00 TOTAL $4600.00 Left Cornea Posterior Layer Implanted:Qty : 1 on 06/19/2020 by Moses Thomas MD at [facility] Right: Eye [employer] 10/21/2021 V0004 / [id number] / [id number] [employer] Zcb00 18.0d Tecnis Protec 6mm 13mm 1 Piece Anterior Aspheric Square Edge Uv - [id number] - [id number] Implanted:Qty : 1 on 06/19/2020 by Moses Thomas MD at [facility] Right: Eye [employer] 06/05/2023 [id number] / [id number] / Procedures Procedure Name Priority Date/Time Associated Diagnosis Comments SLEEP LAB/STUDY - RESULT 05/02/2025 4:59 PM CDT from Last 3 Months Results * SLEEP LAB/STUDY - RESULT (05/02/2025 4:59 PM CDT) us Provider Scanning Final Result from Last 3 Months Insurance [facility] HEALTH PLAN [facility] H[facility]/PPO Address: [address] [place] [address] [facility] CHOICE PLUS Advance Directives For more information, please contact: [phone] * Full Code (Latest Code Status on File) Date Activated Date Inactivated Comments 06/19/2020 3:40 PM 06/19/2020 8:41 PM Care Teams Plugman Relationship Specialty Start Date End Date Matt Pineda MD [address] [place] [address] PCP - General 01/01/17
--- OUTSIDE RECORDS SUMMARY | 2025-06-23 14:00 | XMS_ITS | Clinical Summary ---
Author Organization [facility] Address [address] [place] [address] Care Team Providers Care Case Managers Name Role Phone Matt Pineda MD Primary Care Provider [phone] Source Comments [facility]ates and Associated Physician Practices is amultiple site organization consisting of ambulatory clinics and hospital sitesin [place], [place], [place] and [place]. This disclosure is being madepursuant to the Care Everywhere program and may not contain all information available regarding this patient. Last updated 18.[facility] Allergies No known active allergies Medications * [...] fluticasone propionate (FLONASE) 50 MCG/ACT nasal spray [place] 2 (two) sprays into each nostril once [...] on file Legal Sex Male 5:25 AM CORNER CUTTER Gender Identity Not on file Sexual Orientation Not on file Last Filed Vital Signs Vital Sign Reading Time Taken Comments Blood Pressure 149/80 09/27/2020 1:03 PM CORNER CUTTER Pulse 58 09/27/2020 1:03 PM CORNER CUTTER Temperature - - Respiratory Rate - - Oxygen Saturation - - Inhaled Oxygen Concentration - - Weight 96.6 kg (213 lb) 09/27/2020 1:03 PM CORNER CUTTER Height 172.7 cm (5' 8) 09/27/2020 1:03 PM CORNER CUTTER Body Mass Index 32.39 09/27/2020 1:03 PM CORNER CUTTER Plan of Treatment Health Maintenance Due Date [...] patient's age to complete this topic Insurance [facility] [address] [place] [address] [employer] SELF PAY NO INSURANCE Member Subscriber Plan / Payer (Ef fective for All Dates) Name:Lawson Gonzalezcesia Woo Member ID:Not on file Relation to Subscriber:Not on file Name:INDER GONZALEZ Chilo Subscriber ID:Not on file (Home) Address: [place] [address] Payer ID:Not on file Group ID:Not on file Type:Self Pay Address: [place], [place] Care Teams Case Managers Relationship Specialty Start Date End Date Matt Pineda MD [address] [place] [address] TOMY Allen [id number] PCP - General 09/11/20
--- OUTSIDE RECORDS SUMMARY | 2025-06-23 14:00 | XMS_ITS | Patient Health Record ---
Author Organization [facility] Address [address] [place], [place] [id number] Care Team Providers Care Vp Software Support Name Role Phone ADA DOSS Unavailable [phone] AlejandraAda barney Unavailable Unavailable Allergies No Known Allergies Reason For Referral No Information Medications Medication SIG (Take, Route, Frequency, Duration) Notes Start Date End Date Status Lisinopril 10 MG Oral Tablet ORAL lisinopril 10 MG Oral TabletOriginal Medicationlisinopril 10 MG Oral Tablet *Reorder from [employer] for eRx and Interaction Alerts* 06/18/2013 Active Social History Social History Additional Details Category Social Info Options Details Migrated Social History Migrated Social History Smoking Status : Never smoked , Alcohol intake : , History of tobacco use : Plan Of Treatment No Information Insurance Providers Payer Name Payer Address Payer Phone Subscriber Number Group Number Insured Name Patient Relationship to Insured Coverage Start Date Coverage End Date [facility] [address] [address] [place] [address] [id number] U INDER GONZALEZ Self - patient is the insured Medical (General) History Medical History History ICD Code Arthritis Sleep apnea
--- OUTSIDE RECORDS SUMMARY | 2025-06-23 14:00 | XMS_ITS | Clinical Summary ---
Author Organization [facility] Address [address] [place] [id number] Care Team Providers Care Resident Care Manager Rn Name Role Phone Matt Pineda MD Primary Care Provider [phone] Immunizations Immunization Administration Dates Next Due PFIZER [...] 2024-2 6 season) 2025 11/23/2020, 11/03/2020 Influenza Adult (#1) 2025 RSV Immunization or 60+ Years (1 - 1-dose 75+ series) 2036 Hepatitis A Vaccines Aged Out No long er eligible based on patient's age to complete this topic Meningococcal B Vaccine Aged Out No l onger eligible based on patient's age to complete this topic Meningococcal Vaccine Aged Out No wilmer john paul eligible based on patient's age to complete this topic RSV Immunizations Under 20 Months Aged Out No longer eligible b ased on patient's age to complete this topic Care Teams Resident Care Manager Rn Relationship Specialty Start Date End Date Matt Pineda MD [address] [place] [address] PCP - General 10/19/13
== END 2025-06-23 13:17 | disposition home or self-care (01) ==
PROVIDERS: PCP Family Medicine; Visit Provider Nurse Practitioner Family
DX: R91.8 Other nonspecific abnormal finding of lung field (principal)
CPT/HCPCS: 71250